=== PATIENT | male | born 1985 | race American Indian/Alaskan Native ===

== ENCOUNTER 2017-03-26 12:11 | Emergency (ER) | payer OTHER ==
[~2017-03-26] VITALS: Ht 27.9 cm; Wt 77.1 kg
[~2017-03-26 12:11] MED LIST: ANU28T PR; CEP500 PO; CEPH-13 PO; DOC100 PO; KET10 PO; LOR5 PO; NO ROUTINE MEDS; SULF-198 PO
--- NOTE | 2017-03-26 12:52 | ER Report ---
History and Physical Time Seen By MD: 12:15 Hx. of Stated Complaint: cough. lungs starting to hurt. nauseated from the yellow mucus HPI/ROS CHIEF COMPLAINT: Cough runny nose HISTORY OF PRESENT ILLNESS: 31-year-old male exposed to RSV which his 7-month- old daughter has presents with cough runny nose chest discomfort shortness of breath for the past week and worsened yesterday. Cough has been nonproductive no wheezing or difficulty moving air no rashes or skin color changes. No other concerns or complaints today. REVIEW OF SYSTEMS: Respiratory: No edema Cardiovascular: No chest pain, no palpitations. Gastrointestinal: No vomiting, no abdominal pain. Musculoskeletal: No back pain. Allergies: Coded Allergies: No Known Drug Allergies (Verified , 03/26/17) Home Meds Discontinued Reported Medications [No Routine Meds] No Conflict Check 04/03/11 Discontinued Scripts Sulfamethoxazole/Trimet 800-160 Mg Tab (BACTRIM DS TABLET) 1 Each Tablet, 1 TAB PO Q12H, #14 MG 0 Refills TAKE ONE TABLET BY MOUTH EVERY TWELVE HOURS Prov:LAN KEARNS MD 01/12/16 Ketorolac Tromethamine (KETOROLAC TROMETHAMINE) 10 Mg Tab, 10 MG PO Q6H Y for PAIN, #12 TAB 0 Refills Prov:LAN KEARNS MD 05/30/13 Cephalexin (KEFLEX) 500 Mg Capsule, 500 MG PO Q6H, #20 CAP 0 Refills TAKE ONE CAPSULE BY MOUTH EVERY SIX HOURS Prov:LAN KEARNS MD 05/30/13 Hx Smoking: No Hx Substance Use Disorder: No Hx Alcohol Use: Yes (OCC) Constitutional Vital Sign - Last 24 Hours 03/26/17 12:15 Temp 97.8 Pulse 88 Resp 16 B/P (MAP) 150/94 Pulse Ox 94 O2 Delivery Room Air Physical Exam General Appearance: The patient is alert, has no immediate need for airway protection and no current signs of toxicity. Appears sick but nontoxic classic appearance of viral upper respiratory syndrome Eyes: Pupils equal and round no injection. HEENT: Copious rhinorrhea, clear Respiratory: Chest is non tender, lungs are clear to auscultation. Occasional dry cough heard Cardiac: regular rate and rhythm no murmurs gallops or rubs Gastrointestinal: Abdomen is soft and non tender, no masses, bowel sounds normal. Musculoskeletal: Neck: Neck is supple and non tender. Extremities have full range of motion and are non tender. Skin: No rashes or lesions. Otherwise normal DIFFERENTIAL DIAGNOSIS: After history and physical exam differential diagnosis was considered for strep flu RSV pneumonia no signs of other serious or dangerous process going on etiology is clearly infectious. Medical Decision Making Data Points Laboratory Hematology Test 03/26/17 12:21 03/26/17 12:44 03/26/17 12:49 Influenza Virus Type A (PCR) Negative (NEGATIVE) Influenza Virus Type B (PCR) Negative (NEGATIVE) Group A Streptococcus Screen Negative (NEGATIVE) Respiratory Syncytial Virus (PCR) Positive (NEGATIVE) Chemistry Test 03/26/17 12:21 03/26/17 12:44 03/26/17 12:49 Influenza Virus Type A (PCR) Negative (NEGATIVE) Influenza Virus Type B (PCR) Negative (NEGATIVE) Group A Streptococcus Screen Negative (NEGATIVE) Respiratory Syncytial Virus (PCR) Positive (NEGATIVE) ED Course/Re-evaluation ED Course Plan of care agreed-upon prior to orders placed Re-evaluation Positive RSV results of the labs and x-ray results were also discussed and were negative. Home care to support immune system and [id number] remedies follow-up and reasons to return were discussed in addition to standard precautions to prevent spread. Decision to Disposition Date: Mar 26, 2017 Decision to Disposition Time: 13:35 Depart Departure Latest Vital Signs Vital Signs Date Time Temp Pulse Resp B/P (MAP) Pulse Ox O2 Delivery O2 Flow Rate FiO2 03/26/17 12:15 97.8 88 16 150/94 94 Room Air Impression: Primary Impression: RSV (respiratory syncytial virus infection) Condition: Improved Disposition: HOME OR SELF-CARE Referrals: JM ARZATE No Active Prescriptions or Reported Meds Patient Instructions: Respiratory Syncytial Virus (ED) KESHA DIALLO MD Mar 26, 2017 12:52
--- NOTE | 2017-03-26 13:24 | RADIOLOGY IMAGING REPORT ---
FACILITY: [facility] [place] PATIENT NAME: Della Miles : 1985 MR: [id number] V: [id number] EXAM DATE: ORDERING PHYSICIAN: KESHA DIALLO TECHNOLOGIST: Location: [facility] [place] Patient: Della Miles : 1985 Visit/Account:[id number] Date of Sevice: 03/26/2017 CHEST PA AND LAT COMPARISON: None. HISTORY: Pneumonia. Cough with chest pain for one week. FINDINGS: CARDIAC/VASC: No cardiac silhouette abnormality or cardiomegaly. Unremarkable pulmonary vasculatu re. MEDIASTINUM: No visible mass or adenopathy. LUNGS/PLEURA: No pneumothorax. No significant pulmonary parenchymal abnormalities. No effusion or p leural thickening. BONES: No fracture or visible bony lesion. OTHER:Negative. IMPRESSION: No acute cardiopulmonary process. Report Dictated By: Brian Mcclellan at 03/26/2017 1:19 PM Report E-Signed By: Brian Mcclellan at 03/26/2017 1:19 PM WSN:[id number]
[2017-03-26 13:49] VITALS: BP 129/96
== END 2017-03-26 13:54 | disposition home or self-care (01) ==
LOC: ER 12:17
DX: B97.4 Respiratory syncytial virus as the cause of diseases classified elsewhere (principal)
CPT/HCPCS: 71046; 87081; 87502; 87798; 87880; 99283